=== PATIENT | male | born 1985 | race Caucasian/White ===

== ENCOUNTER 2024-07-03 11:14 | Day surgery (SDC) | payer BC ==
[2024-07-03] MEDS ORDERED: Lactated Ringers 1,000 ML IV ONE (11:23)
[2024-07-03] MEDS ORDERED: CLINDAMYCIN-D5W 900 MG/50 ML*** 900 MG/50 ML BAG IV ONE (11:23)
[2024-07-03 11:38] VITALS: RESP 18
[2024-07-03] MEDS: Lactated Ringers 1,000 ML IV SCH (11:50)
[2024-07-03] MEDS ORDERED: Marcaine Mpf 0.5% Vial 30 Ml ONE (14:27)
[2024-07-03] MEDS ORDERED: XYLOCAINE 1% HCL 20 ML MDV ONE (14:27)
[2024-07-03] MEDS ORDERED: DIPRIVAN 200 MG/20 ML IV ONE (14:28)
[2024-07-03] MEDS ORDERED: Versed 2 MG/2 ML Injection ONE (14:29)
[2024-07-03] MEDS ORDERED: SUBLIMAZE 100 MCG/2 ML ONE (14:29)
[2024-07-03 15:31] VITALS: TEMP 96.7; O2SAT 97
[2024-07-03 15:42] VITALS: BP 133/85; PULSE 77
--- NOTE | 2024-07-04 08:49 | OP ---
SURGERY DATE/TIME: 07/03/2024 6004 - [id number] PREOPERATIVE DIAGNOSIS: Left infrapatellar bursitis with abscess. POSTOPERATIVE DIAGNOSIS: Left infrapatellar bursitis with abscess. PROCEDURE: Incision and drainage, debridement left infrapatellar bursa abscess. SURGEON: Morgan Yoo MD ANESTHESIA: IV and local anesthesia. PATIENT CONDITION: Stable. COMPLICATIONS: None. SPECIMENS: Swab culture. INDICATIONS: Patient is a 39-year-old male that presents with about 6 weeks of issues that he is having some swelling, left infrapatellar, after working on his knees and typical symptoms of bursitis, was treated with antibiotics. Did see urgent care, did see Orthopedics where he did get put on antibiotics and then had a recurrent round of antibiotics with his primary. However, he then had worsening symptoms, worsening pain, swelling, redness, erythema, and some desquamation of the skin. Ultrasound has been obtained, CT scan obtained showing fluid collection there. On exam, there is erythema, starting to have skin breakdown and obvious infection without surrounding cellulitis. Discussion was had with the patient. At this point, with the skin changes, recommendation is for incision and drainage, debridement. This could continue to cause problems even after it is drained and allowed to heal. He elects to proceed with that. FINDINGS: Consistent with a left infrapatellar bursitis with abscess, cloudy fluid swabbed for culture. DESCRIPTION OF PROCEDURE AND FINDINGS: Patient was brought to the operating room. Routinely positioned and prepped and draped. Time-out performed. The lesion had been marked in preoperative holding area. The local anesthetic was injected at the area of partial skin breakdown and maximal fluctuance left infrapatellar just over the tibia in the middle. There was cloudy mirky fluid, which is swabbed for culture x2. The cavity was then probed. This was about a 4 cm abscess cavity there that was just lightly curetted and the cavity was then packed with Iodoform gauze. Clean dressing applied. All counts were correct. The patient tolerated the procedure well, sent to Recovery in stable condition.
== END 2024-07-03 15:43 | disposition home or self-care (01) ==
LOC: SDC 11:14
PROVIDERS: ATTEND Surgery
DX: M71.062 Abscess of bursa, left knee (principal); E11.9 Type 2 diabetes mellitus without complications
CPT/HCPCS: 82947; 87070; 87075; 87205; J2250; J2704; J3010